=== PATIENT | female | born 1960 | race Caucasian/White ===

== ENCOUNTER 2021-06-24 09:23 | Emergency (ER) | payer OTHER ==
[2021-06-24 10:16] VITALS: BP 116/61; PULSE 83; TEMP 98.6; BMI 27.6
[2021-06-24] MEDS ORDERED: CASIRIVIMAB/IMDEVIMAB 10 ML in SODIUM CHLORIDE 100 ML IVPB ONE (13:30)
== END 2021-06-24 16:40 | disposition home or self-care (01) ==
LOC: JCOVINFU 09:23
PROC: 3E033GC Introduction of Other Therapeutic Substance into Peripheral Vein, Percutaneous Approach (ICD-10-PCS; principal; 2021-06-24)
DX: U07.1 COVID-19 (principal)
CPT/HCPCS: 99284-25; Q0240